=== PATIENT | male | born 1950 | race Caucasian/White ===

== ENCOUNTER 2016-09-29 21:17 | Emergency (ER) | payer MEDICARE, OTHER ==
[~2016-09-29] VITALS: Ht 177.8 cm; Wt 112.7 kg
[2016-09-29 21:19] VITALS: BP 200/98
[2016-09-29 22:25] LABS: HEMOGLOBIN 10.5 g/dL (13.7-18.0)
[2016-09-29] MEDS ORDERED: OXYcodone/APAP 5/325MG TABLET PO ONE (22:30)
[2016-09-29] MEDS ORDERED: PHENAZOPYRIDINE 200 MG TABLET PO ONE (22:30)
[2016-09-29 22:33] LABS: ASPARTATE AMINO TRANSFERASE 28 U/L (15-37); BLOOD UREA NITROGEN 9 mg/dL (7-18)
[2016-09-29 22:45] LABS: DIFF TOTAL CELLS COUNTED 100 CELL DIFF
[2016-09-29] MEDS ORDERED: PHENAZOPYRIDINE 200 MG TABLET ONE (22:46)
[2016-09-29] MEDS ORDERED: OXYcodone/APAP 5/325MG TABLET ONE (22:46)
[2016-09-29 22:50] LABS: VERIFY COUNTS? YES
[2016-09-29 22:51] LABS: ANISOCYTOSIS 1+; MICROCYTOSIS 1+; POLYCHROMASIA 1+
== END 2016-09-30 00:04 | disposition home or self-care (01) ==
LOC: ED 22:47
DX: N30.91 Cystitis, unspecified with hematuria (principal); I10 Essential (primary) hypertension
CPT/HCPCS: 36415; 74176; 80053; 81001; 85025; 85610; 85730; 99285

== ENCOUNTER → 2016-10-28 | Outpatient (CLI) | payer MEDICARE, OTHER ==
[~2016-10-28] MED LIST: OMNIPAQUE 350 MG/ML, 150 ML BOTTLE ONE
== END | disposition home or self-care (01) ==
LOC: RAD 12:54
PROVIDERS: ATTEND Urology
DX: K76.9 Liver disease, unspecified (principal); K57.90 Diverticulosis of intestine, part unspecified, without perforation or abscess without bleeding
CPT/HCPCS: 74178; Q9967

== ENCOUNTER → 2016-11-13 | Outpatient (CLI) | payer MEDICARE, OTHER ==
[~2016-11-13] MED LIST changes: +GADOBUTROL 10 MMOL/10 ML VIAL ONE; +OMNIPAQUE 350 MG/ML, 100ML BOTTLE ONE; -OMNIPAQUE 350 MG/ML, 150 ML BOTTLE ONE
== END | disposition home or self-care (01) ==
LOC: RAD 14:02
PROVIDERS: ATTEND Urology
DX: C67.9 Malignant neoplasm of bladder, unspecified (principal); J43.2 Centrilobular emphysema; R91.1 Solitary pulmonary nodule; J98.11 Atelectasis; R16.2 Hepatomegaly with splenomegaly, not elsewhere classified; K76.0 Fatty (change of) liver, not elsewhere classified; Z98.890 Other specified postprocedural states
CPT/HCPCS: 71260; 72197; 74183; A9585; Q9967

== ENCOUNTER → 2016-11-14 | Outpatient (CLI) | payer MEDICARE, OTHER | END | disposition home or self-care (01) | LOC: RAD 07:20 | PROVIDERS: ATTEND Urology | DX: C67.9 Malignant neoplasm of bladder, unspecified (principal); M19.031 Primary osteoarthritis, right wrist; M19.012 Primary osteoarthritis, left shoulder; M19.011 Primary osteoarthritis, right shoulder; M17.0 Bilateral primary osteoarthritis of knee; M47.9 Spondylosis, unspecified; M19.072 Primary osteoarthritis, left ankle and foot; M19.071 Primary osteoarthritis, right ankle and foot | CPT/HCPCS: 78306; A9503 ==

== ENCOUNTER → 2017-01-01 | Outpatient (CLI) | payer MEDICARE, OTHER ==
[~2017-01-01] MED LIST changes: -GADOBUTROL 10 MMOL/10 ML VIAL ONE
== END | disposition home or self-care (01) ==
LOC: CFH 13:16
PROVIDERS: ATTEND Internal Medicine
DX: C67.8 Malignant neoplasm of overlapping sites of bladder (principal); R59.0 Localized enlarged lymph nodes; R91.1 Solitary pulmonary nodule; K76.89 Other specified diseases of liver
CPT/HCPCS: 71260; 74177; Q9967

== ENCOUNTER → 2017-02-13 | Outpatient (CLI) | payer MEDICARE, OTHER | END | disposition home or self-care (01) | LOC: CFH 13:22 | PROVIDERS: ATTEND Internal Medicine | DX: K57.30 Diverticulosis of large intestine without perforation or abscess without bleeding (principal); K76.89 Other specified diseases of liver; N32.89 Other specified disorders of bladder; M51.36 Other intervertebral disc degeneration, lumbar region; R91.1 Solitary pulmonary nodule; R59.0 Localized enlarged lymph nodes; C67.9 Malignant neoplasm of bladder, unspecified | CPT/HCPCS: 71260; 74177; Q9967 ==

== ENCOUNTER → 2017-03-05 | Outpatient (CLI) | payer MEDICARE, OTHER | END | disposition home or self-care (01) | LOC: PETCFH 08:10 | PROVIDERS: ATTEND Internal Medicine | DX: C67.8 Malignant neoplasm of overlapping sites of bladder (principal) | CPT/HCPCS: 78815; A9552 ==

== ENCOUNTER → 2017-03-31 | Outpatient (CLI) | payer MEDICARE, OTHER ==
[~2017-03-31] MED LIST changes: +INSU100V SC; +LOSA1TAB16 PO; +OMEP-110 PO; -OMNIPAQUE 350 MG/ML, 100ML BOTTLE ONE; +SERT100T5 PO
[2017-03-31 14:22] LABS: HEMATOCRIT 33.2 % (39.2-51.8); HEMOGLOBIN 10.8 g/dL (13.7-18.0); WHITE BLOOD COUNT 4.9 x10^3/uL (3.4-10)
[2017-03-31 14:35] LABS: BLOOD UREA NITROGEN 17 mg/dL (7-18)
[2017-03-31 14:38] LABS: ASPARTATE AMINO TRANSFERASE 11 U/L (15-37)
== END | disposition home or self-care (01) ==
LOC: STAR 13:12
PROVIDERS: ATTEND Urology
DX: Z01.818 Encounter for other preprocedural examination (principal); C67.9 Malignant neoplasm of bladder, unspecified
CPT/HCPCS: 36415; 80053; 81001; 85025; 87086; 93005

== ENCOUNTER → 2017-04-02 | Outpatient (CLI) | payer MEDICARE, OTHER | END | disposition home or self-care (01) | LOC: WOUND 07:48 | PROVIDERS: ATTEND Internal Medicine | DX: D49.4 Neoplasm of unspecified behavior of bladder (principal); E11.9 Type 2 diabetes mellitus without complications; M19.90 Unspecified osteoarthritis, unspecified site; I10 Essential (primary) hypertension; R31.9 Hematuria, unspecified | CPT/HCPCS: G0463; WOU0463 ==

== ENCOUNTER 2017-04-04 05:32 | Inpatient (IN) | payer MEDICARE, OTHER ==
[~2017-04-04] VITALS: Ht 177.8 cm; Wt 111.4 kg
[2017-04-04] MEDS ORDERED: LACTATED RINGERS 1,000 ML IV SCH (06:15)
[2017-04-04 06:39] VITALS: BP 159/87
[2017-04-04] MEDS ORDERED: EPINEPHRINE 1 MG/ML, 1ML ONE (07:00)
[2017-04-04] MEDS ORDERED: BUPIVACAINE/PF 0.25% ONE (07:00)
[2017-04-04] MEDS ORDERED: THROMBIN 5,000 UNIT VIAL TP ONE (07:00)
[2017-04-04] MEDS ORDERED: ONDANSETRON 2MG/ML, 2ML ONE (07:22)
[2017-04-04] MEDS ORDERED: CEFAZOLIN 1,000 MG ONE (07:22)
[2017-04-04] MEDS ORDERED: GLYCOPYRROLATE 0.2MG/1ML, 5ML ONE (07:22)
[2017-04-04] MEDS ORDERED: ROCURONIUM 10 MG/ML ONE (07:22)
[2017-04-04] MEDS ORDERED: SUCCINYLCHOLINE 20 MG/ML, 10ML ONE (07:22)
[2017-04-04] MEDS ORDERED: PROPOFOL 10 MG/ML, 20ML ONE (07:22)
[2017-04-04] MEDS ORDERED: DEXAMETHASONE 4 MG/ML, 1ML ONE (07:22)
[2017-04-04] MEDS ORDERED: NEOSTIGMINE 1 MG/ML, 10ML ONE (07:22)
[2017-04-04] MEDS ORDERED: FENTANYL PF 500 MCG/10ML ONE ×2 (07:23→09:09)
[2017-04-04] MEDS ORDERED: KETAMINE 10 MG/ML, 20ML ONE (07:23)
[2017-04-04] MEDS ORDERED: MIDAZOLAM 1 MG/ML, 2ML ONE (07:23)
[2017-04-04] MEDS ORDERED: PHENYLEPHRINE 10 MG/ML ONE (07:58)
[2017-04-04] MEDS ORDERED: CEFOTETAN PMX 2GM/50ML 50 ML ONE (08:30)
[2017-04-04] MEDS ORDERED: LIDOCAINE-MPF 2% ,5ML ONE ×2 (09:28)
[2017-04-04] MEDS ORDERED: FENTANYL PF 100 MCG/2ML IV PRN (09:30)
[2017-04-04] MEDS ORDERED: OXYcodone 5 MG/5 ML ORAL.SOL UDC PO PRN (09:30)
[2017-04-04] MEDS ORDERED: HYDROmorphone 1 MG/ML, 1ML IV PRN (09:30)
[2017-04-04] MEDS ORDERED: hydrALAzine 20 MG/ML, 1ML IV PRN (09:30)
[2017-04-04] MEDS ORDERED: PROMETHAZINE 25 MG/ML, 1ML IV PRN (09:30)
[2017-04-04] MEDS ORDERED: LABETALOL 5MG/ML, 20ML IV PRN (09:30)
[2017-04-04] MEDS ORDERED: ALBUTEROL/IPRATROPIUM 2.5MG/0.5MG, 3 ML NPPB PRN (09:30)
[2017-04-04] MEDS ORDERED: ONDANSETRON 2MG/ML, 2ML IVPush PRN (09:30)
[2017-04-04] MEDS ORDERED: MEPERIDINE/PF 25MG/0.5ML IVPush PRN (09:30)
[2017-04-04] MEDS ORDERED: MIDAZOLAM 1 MG/ML, 2ML IV PRN (09:30)
[2017-04-04] MEDS ORDERED: EPHEDRINE 50 MG/ML, 1ML IVPush PRN (09:30)
[2017-04-04] MEDS ORDERED: DIAZEPAM 5 MG/ML, 2ML IVPush PRN (09:30)
[2017-04-04] MEDS ORDERED: ACETAMINOPHEN 325 MG TABLET PO PRN (09:30)
[2017-04-04] MEDS ORDERED: LABETALOL 5MG/ML, 20ML ONE ×2 (10:00→14:21)
[2017-04-04] MEDS ORDERED: HEPARIN 5,000 UNITS/ML, 1ML ONE (10:00)
[2017-04-04] MEDS ORDERED: CEFOTETAN PMX 1GM/50ML 50 ML ONE ×2 (15:34→15:47)
[2017-04-04] MEDS ORDERED: ACETAMINOPHEN 650 MG/20.3 ML UDC ONE (16:48)
[2017-04-04] MEDS ORDERED: OXYcodone 5 MG/5 ML ORAL.SOL UDC ONE (16:48)
[2017-04-04] MEDS ORDERED: HYDROmorphone 1 MG/ML, 1ML ONE ×2 (16:48→18:37)
[2017-04-04] MEDS ORDERED: FENTANYL PF 100 MCG/2ML ONE (16:48)
[2017-04-04] MEDS ORDERED: INSULIN SINGLE DOSE, ER SQ-INSULIN ONE (16:53)
[2017-04-04] MEDS ORDERED: INSULIN REGULAR 100 UNITS/ML, 3ML VIAL SQ-INSULIN SCH (17:00)
[2017-04-04] MEDS: HYDROmorphone 1 MG/ML, 1ML IV PRN (18:40)
[2017-04-04 18:56] VITALS: BP 130/75
[2017-04-04] MEDS ORDERED: CEFOXITIN PMX 1GM/50ML 50 ML IVPB SCH (19:00)
[2017-04-04] MEDS ORDERED: Postop antibiotic to be continued for longer than 24 hours XX PRN (19:00)
[2017-04-04] MEDS ORDERED: CEFOXITIN 1,000 MG in SODIUM CHLORIDE 0.9% 50 ML IVPB SCH (19:00)
[2017-04-04] MEDS ORDERED: ONDANSETRON 2MG/ML, 2ML IV PRN (19:00)
[2017-04-04] MEDS ORDERED: PROMETHAZINE 25 MG/ML, 1ML IM PRN (19:00)
[2017-04-04] MEDS: LACTATED RINGERS 1,000 ML IV SCH (22:07)
[2017-04-04] MEDS: ACETAMINOPHEN 500 MG TABLET PO SCH (22:08)
[2017-04-04] MEDS: CEFOXITIN 1,000 MG in SODIUM CHLORIDE 0.9% 50 ML IVPB SCH (22:08)
[2017-04-04] MEDS: GABAPENTIN 300 MG CAPSULE PO SCH (22:08)
[2017-04-04] MEDS: INSULIN REGULAR, HUMAN 100 UNITS/ML, 3ML MEDIUM DOSE SS SQ-INSULIN SCH (22:39)
[2017-04-05] VITALS: BP 129/83
[2017-04-05] MEDS: ACETAMINOPHEN 500 MG TABLET PO SCH ×4 (01:23→18:44)
[2017-04-05] MEDS: HYDROmorphone 1 MG/ML, 1ML IV PRN ×5 (01:26→14:34)
[2017-04-05] MEDS ORDERED: HYDROmorphone 1 MG/ML, 1ML ONE (04:51)
[2017-04-05] MEDS: CEFOXITIN 1,000 MG in SODIUM CHLORIDE 0.9% 50 ML IVPB SCH ×2 (05:17→18:46)
[2017-04-05 06:06] LABS: BLOOD UREA NITROGEN 19 mg/dL (7-18)
[2017-04-05 06:12] LABS: HEMATOCRIT 29.6 % (39.2-51.8); HEMOGLOBIN 9.5 g/dL (13.7-18.0); WHITE BLOOD COUNT 8.5 x10^3/uL (3.4-10)
[2017-04-05 06:43] VITALS: BP 132/74
[2017-04-05] MEDS: LACTATED RINGERS 1,000 ML IV SCH (07:00)
[2017-04-05] MEDS: INSULIN REGULAR, HUMAN 100 UNITS/ML, 3ML MEDIUM DOSE SS SQ-INSULIN SCH ×4 (07:33→20:28)
[2017-04-05] MEDS ORDERED: POTASSIUM CHLORIDE 20 MEQ in SODIUM CHLORIDE 0.45% 1,000 ML IV SCH (09:01)
[2017-04-05] MEDS: ENOXAPARIN 40 MG/0.4 ML SQ SCH (09:31)
[2017-04-05] MEDS: PANTOPROZOLE 40MG TABLET PO SCH (09:32)
[2017-04-05] MEDS: SERTRALINE 50MG TABLET PO SCH (09:32)
[2017-04-05] MEDS: GABAPENTIN 300 MG CAPSULE PO SCH ×3 (09:32→20:28)
[2017-04-05] MEDS: OXYcodone IR 5MG TABLET PO PRN (10:07)
[2017-04-05 12:41] VITALS: BP 142/83
[2017-04-05 19:08] VITALS: BP_SYST 117; BP_SYST 98; BP_DIAS 57; BP_DIAS 73
[2017-04-05] MEDS ORDERED: PROMETHAZINE 25 MG/ML, 1ML IM PRN (20:30)
[2017-04-05] MEDS ORDERED: ONDANSETRON 2MG/ML, 2ML IV PRN (20:30)
[2017-04-05] MEDS: POTASSIUM CHLORIDE 20 MEQ in SODIUM CHLORIDE 0.45% 1,000 ML IV SCH (21:19)
[2017-04-06] MEDS: ACETAMINOPHEN 500 MG TABLET PO SCH ×4 (01:12→20:48)
[2017-04-06 02:00] VITALS: BP 126/78
[2017-04-06 05:23] LABS: HEMATOCRIT 27.7 % (39.2-51.8)
[2017-04-06 05:30] LABS: BLOOD UREA NITROGEN 13 mg/dL (7-18)
[2017-04-06] MEDS: INSULIN REGULAR, HUMAN 100 UNITS/ML, 3ML MEDIUM DOSE SS SQ-INSULIN SCH (07:00)
[2017-04-06] MEDS: CEFOXITIN 1,000 MG in SODIUM CHLORIDE 0.9% 50 ML IVPB SCH (07:17)
[2017-04-06 07:50] VITALS: BP 136/82
[2017-04-06] MEDS: PANTOPROZOLE 40MG TABLET PO SCH (08:12)
[2017-04-06] MEDS: GABAPENTIN 300 MG CAPSULE PO SCH ×3 (08:12→20:48)
[2017-04-06] MEDS: SERTRALINE 50MG TABLET PO SCH (08:13)
[2017-04-06] MEDS: POTASSIUM CHLORIDE 20 MEQ in SODIUM CHLORIDE 0.45% 1,000 ML IV SCH ×2 (08:13→23:50)
[2017-04-06] MEDS: ENOXAPARIN 40 MG/0.4 ML SQ SCH (08:13)
[2017-04-06] MEDS ORDERED: INSULIN REGULAR 100 UNITS/ML, 3ML VIAL SQ-INSULIN SCH (12:00)
[2017-04-06 15:06] LABS: HEMOGLOBIN 8.7 g/dL (13.7-18.0); WHITE BLOOD COUNT 7.9 x10^3/uL (3.4-10)
[2017-04-06 15:16] LABS: BLOOD UREA NITROGEN 12 mg/dL (7-18)
[2017-04-06] MEDS: CEPHALEXIN 500 MG CAPSULE PO SCH ×2 (15:19→20:49)
[2017-04-06] MEDS: INSULIN REGULAR 100 UNITS/ML, 3ML VIAL SQ-INSULIN SCH ×2 (15:22→21:06)
[2017-04-06 15:34] VITALS: BP 132/77
[2017-04-06 19:47] VITALS: BP 138/78
[2017-04-07 02:15] VITALS: BP 147/90
[2017-04-07 06:21] LABS: HEMATOCRIT 27.8 % (39.2-51.8); HEMOGLOBIN 8.9 g/dL (13.7-18.0); WHITE BLOOD COUNT 8.3 x10^3/uL (3.4-10)
[2017-04-07 06:42] LABS: BLOOD UREA NITROGEN 12 mg/dL (7-18)
[2017-04-07] MEDS: INSULIN REGULAR 100 UNITS/ML, 3ML VIAL SQ-INSULIN SCH ×4 (07:00→21:03)
[2017-04-07 08:05] VITALS: BP 138/80
[2017-04-07] MEDS: PANTOPROZOLE 40MG TABLET PO SCH (08:10)
[2017-04-07] MEDS: KETOROLAC 30 MG/1 ML IV PRN ×2 (11:21→16:53)
[2017-04-07] MEDS: CEPHALEXIN 500 MG CAPSULE PO SCH ×3 (11:21→21:04)
[2017-04-07] MEDS: GABAPENTIN 300 MG CAPSULE PO SCH ×2 (11:21→16:52)
[2017-04-07] MEDS: ENOXAPARIN 40 MG/0.4 ML SQ SCH (11:21)
[2017-04-07] MEDS: ACETAMINOPHEN 500 MG TABLET PO SCH ×3 (11:22→21:04)
[2017-04-07] MEDS: METOCLOPRAMIDE 5 MG/ML, 2ML IV SCH ×3 (11:23→21:03)
[2017-04-07 19:08] VITALS: BP 128/81
[2017-04-08 02:50] VITALS: BP 147/83
[2017-04-08] MEDS: ACETAMINOPHEN 500 MG TABLET PO SCH ×4 (03:41→21:42)
[2017-04-08] MEDS: METOCLOPRAMIDE 5 MG/ML, 2ML IV SCH ×4 (03:41→21:42)
[2017-04-08 05:43] LABS: HEMATOCRIT 26.1 % (39.2-51.8); HEMOGLOBIN 8.2 g/dL (13.7-18.0); WHITE BLOOD COUNT 6.4 x10^3/uL (3.4-10)
[2017-04-08 05:47] LABS: BLOOD UREA NITROGEN 19 mg/dL (7-18)
[2017-04-08] MEDS: INSULIN REGULAR 100 UNITS/ML, 3ML VIAL SQ-INSULIN SCH ×4 (07:00→21:00)
[2017-04-08 07:38] VITALS: BP 128/73
[2017-04-08] MEDS: CEPHALEXIN 500 MG CAPSULE PO SCH ×3 (09:38→21:42)
[2017-04-08] MEDS: ENOXAPARIN 40 MG/0.4 ML SQ SCH (09:38)
[2017-04-08] MEDS: PANTOPROZOLE 40MG TABLET PO SCH (09:38)
[2017-04-08] MEDS: KETOROLAC 30 MG/1 ML IV PRN ×2 (14:48→21:42)
[2017-04-08] MEDS ORDERED: NICOTINE 7 MG/24 HR PATCH.TD24 TD PRN (17:00)
[2017-04-08] MEDS: OXYcodone IR 5MG TABLET PO PRN (17:04)
[2017-04-08] MEDS: POTASSIUM CHLORIDE 20 MEQ in SODIUM CHLORIDE 0.45% 1,000 ML IV SCH (18:38)
[2017-04-08 18:52] VITALS: BP 152/83
[2017-04-09 02:16] VITALS: BP 136/80
[2017-04-09] MEDS: OXYcodone IR 5MG TABLET PO PRN (02:28)
[2017-04-09] MEDS: ACETAMINOPHEN 500 MG TABLET PO SCH ×4 (04:28→21:03)
[2017-04-09] MEDS: METOCLOPRAMIDE 5 MG/ML, 2ML IV SCH ×4 (04:29→21:03)
[2017-04-09 05:05] LABS: HEMATOCRIT 25.5 % (39.2-51.8); HEMOGLOBIN 8.2 g/dL (13.7-18.0); WHITE BLOOD COUNT 5.3 x10^3/uL (3.4-10)
[2017-04-09 05:19] LABS: BLOOD UREA NITROGEN 16 mg/dL (7-18)
[2017-04-09] MEDS: INSULIN REGULAR 100 UNITS/ML, 3ML VIAL SQ-INSULIN SCH ×4 (06:27→21:00)
[2017-04-09] MEDS: PANTOPROZOLE 40MG TABLET PO SCH (07:58)
[2017-04-09] MEDS: CEPHALEXIN 500 MG CAPSULE PO SCH ×3 (07:58→21:03)
[2017-04-09] MEDS: ENOXAPARIN 40 MG/0.4 ML SQ SCH (07:58)
[2017-04-09 09:45] VITALS: BP 150/80
[2017-04-09] MEDS: POTASSIUM CHLORIDE 20 MEQ in SODIUM CHLORIDE 0.45% 1,000 ML IV SCH (10:13)
[2017-04-09 15:25] VITALS: BP 147/79
[2017-04-09 19:23] VITALS: BP 155/86
[2017-04-10] MEDS: POTASSIUM CHLORIDE 20 MEQ in SODIUM CHLORIDE 0.45% 1,000 ML IV SCH (00:37)
[2017-04-10 01:01] VITALS: BP 146/80
[2017-04-10] MEDS: OXYcodone IR 5MG TABLET PO PRN (02:24)
[2017-04-10] MEDS: ACETAMINOPHEN 500 MG TABLET PO SCH ×2 (03:49→10:40)
[2017-04-10] MEDS: METOCLOPRAMIDE 5 MG/ML, 2ML IV SCH ×2 (03:53→10:00)
[2017-04-10 06:43] VITALS: BP 137/75
[2017-04-10] MEDS: INSULIN REGULAR 100 UNITS/ML, 3ML VIAL SQ-INSULIN SCH ×2 (07:42→11:00)
[2017-04-10] MEDS: PANTOPROZOLE 40MG TABLET PO SCH (08:57)
[2017-04-10] MEDS: CEPHALEXIN 500 MG CAPSULE PO SCH (10:40)
[2017-04-10] MEDS: ENOXAPARIN 40 MG/0.4 ML SQ SCH (10:41)
[2017-04-10 13:07] VITALS: BP 142/75
[2017-04-10] MEDS ORDERED: OXYC5CAP2 PO (15:18)
[2017-04-10] MEDS ORDERED: ENOX40SY4 SQ (15:19)
== END 2017-04-10 15:40 | disposition home or self-care (01) | DRG 654 ==
LOC: ORIP 05:32 → 4NOR 18:20
PROVIDERS: ADMIT Urology; ATTEND Urology
PROC: 07TC4ZZ Resection of Pelvis Lymphatic, Percutaneous Endoscopic Approach (ICD-10-PCS; 2017-04-04)
PROC: 0VT04ZZ Resection of Prostate, Percutaneous Endoscopic Approach (ICD-10-PCS; 2017-04-04)
PROC: 0T1847C Bypass Bilateral Ureters to Ileocutaneous with Autologous Tissue Substitute, Percutaneous Endoscopic Approach (ICD-10-PCS; 2017-04-04)
PROC: 8E0W4CZ Robotic Assisted Procedure of Trunk Region, Percutaneous Endoscopic Approach (ICD-10-PCS; 2017-04-04)
PROC: 0TTB4ZZ Resection of Bladder, Percutaneous Endoscopic Approach (ICD-10-PCS; principal; 2017-04-04 07:30)
DX: C67.9 Malignant neoplasm of bladder, unspecified (principal); K56.7 Ileus, unspecified; E11.9 Type 2 diabetes mellitus without complications
CPT/HCPCS: 36415; 74000; 74020; 80048; 82040; 82570; 82962; 83735; 85025; 86850; 86900; 88305; 88307; 88331; C1729; J0171; J0690; J1100; J1170; J1644; J1650; J1815; J1885; J2250; J2270; J2405; J2704; J2710; J3010; J3480; J3490; C1760; C1769; C2617; J0330; J0694; J2370; J2765; J7120; S0074

== ENCOUNTER 2017-05-12 09:43 | Inpatient (IN) | payer MEDICARE, OTHER ==
[~2017-05-12] VITALS: Ht 177.8 cm; Wt 98.0 kg
[~2017-05-12 09:43] MED LIST changes: +ENOX40SY4 SQ; -LOSA1TAB16 PO; +LOSA1TAB19 PO; +OXYC5CAP2 PO
[2017-05-12] MEDS ORDERED: SODIUM CHLORIDE 0.9% 1,000 ML IV ONE (10:17)
[2017-05-12] MEDS ORDERED: SODIUM CHLORIDE FLUSH 10ML SYR IVF ONE (10:30)
[2017-05-12] MEDS ORDERED: MECLIZINE CHEWABLE 25 MG TAB PO ONE (10:30)
[2017-05-12] MEDS ORDERED: ONDANSETRON 2MG/ML, 2ML IVPush ONE (10:30)
[2017-05-12] MEDS ORDERED: SODIUM CHLORIDE 0.9% 1,000ML IVBOLUS ONE ×2 (10:30→14:00)
[2017-05-12 10:49] LABS: ASPARTATE AMINO TRANSFERASE 12 U/L (15-37); BLOOD UREA NITROGEN 14 mg/dL (7-18)
[2017-05-12 11:00] LABS: HEMATOCRIT 31.2 % (39.2-51.8); HEMOGLOBIN 9.9 g/dL (13.7-18.0); WHITE BLOOD COUNT 9.6 x10^3/uL (3.4-10)
[2017-05-12 11:01] LABS: ANISOCYTOSIS 1+; MICROCYTOSIS 1+; POLYCHROMASIA 1+
[2017-05-12 11:02] LABS: LARGE PLATELETS 1+
[2017-05-12] MEDS ORDERED: ONDANSETRON 2MG/ML, 2ML ONE (11:13)
[2017-05-12] MEDS ORDERED: MECLIZINE CHEWABLE 25 MG TAB ONE (11:13)
[2017-05-12] MEDS ORDERED: CEFTRIAXONE PMX 1GM/50ML 50 ML ONE (12:53)
[2017-05-12] MEDS ORDERED: CEFTRIAXONE PMX 1GM/50ML 50 ML IV ONE (13:00)
[2017-05-12] MEDS ORDERED: HYDROcodone/APAP 5/325 TABLET PO ONE (14:00)
[2017-05-12] MEDS ORDERED: HYDROcodone/APAP 5/325 TABLET ONE (14:25)
[2017-05-12] MEDS ORDERED: ONDANSETRON 2MG/ML, 2ML IVPush PRN (16:00)
[2017-05-12] MEDS: INSULIN ASPART 100 UNITS/ML, PEN SQ-INSULIN SCH ×2 (16:00→21:41)
[2017-05-12] MEDS ORDERED: ONDANSETRON ODT 4 MG PO PRN (16:00)
[2017-05-12 19:00] VITALS: BP 128/74
[2017-05-12 19:28] LABS: IS PT STATUS REG ER OR PRE ER? NO
[2017-05-12] MEDS: ENOXAPARIN 40 MG/0.4 ML SQ SCH (21:40)
[2017-05-12] MEDS: NS + 20MEQ KCL 1,000 ML IV SCH (21:40)
[2017-05-12 22:00] VITALS: BP_SYST 126; BP_SYST 130; BP_SYST 136; BP_DIAS 69; BP_DIAS 75; BP_DIAS 78
[2017-05-13 02:00] VITALS: BP 127/74
[2017-05-13 02:10] LABS: IS PT STATUS REG ER OR PRE ER? NO
[2017-05-13 05:15] LABS: HEMATOCRIT 24.1 % (39.2-51.8); HEMOGLOBIN 7.9 g/dL (13.7-18.0); WHITE BLOOD COUNT 6.3 x10^3/uL (3.4-10)
[2017-05-13 06:32] LABS: ASPARTATE AMINO TRANSFERASE 11 U/L (15-37); BLOOD UREA NITROGEN 13 mg/dL (7-18)
[2017-05-13] MEDS: INSULIN ASPART 100 UNITS/ML, PEN SQ-INSULIN SCH ×4 (07:00→20:38)
[2017-05-13 07:08] VITALS: BP 137/75
[2017-05-13] MEDS: SERTRALINE 100MG TABLET PO SCH (09:35)
[2017-05-13] MEDS: OMEPRAZOLE 20 MG CAPSULE.DR PO SCH (09:35)
[2017-05-13] MEDS: NS + 20MEQ KCL 1,000 ML IV SCH ×2 (09:36→21:40)
[2017-05-13] MEDS: NEUTRA PHOS K 250 MG TABLET PO SCH ×3 (10:27→21:18)
[2017-05-13] MEDS ORDERED: MAGNESIUM SULFATE PMX 2GM/50ML 50 ML IV ONE (11:00)
[2017-05-13] MEDS ORDERED: CEFTRIAXONE PMX 1GM/50ML 50 ML IV SCH (13:00)
[2017-05-13 13:56] VITALS: BP 133/75
[2017-05-13] MEDS ORDERED: POLYETHYLENE GLYCOL 17 GM PACKET PO PRN (16:30)
[2017-05-13] MEDS ORDERED: ACETAMINOPHEN 325 MG TABLET PO PRN (16:30)
[2017-05-13 19:28] VITALS: BP 124/73
[2017-05-13] MEDS: DOCUSATE 100 MG CAPSULE PO SCH (21:18)
[2017-05-13] MEDS: ENOXAPARIN 40 MG/0.4 ML SQ SCH (21:19)
[2017-05-14 02:00] VITALS: BP 113/64
[2017-05-14 04:59] LABS: HEMATOCRIT 24.8 % (39.2-51.8); HEMOGLOBIN 7.9 g/dL (13.7-18.0); WHITE BLOOD COUNT 4.8 x10^3/uL (3.4-10)
[2017-05-14 05:03] LABS: BLOOD UREA NITROGEN 11 mg/dL (7-18)
[2017-05-14 05:11] LABS: FERRITIN 49.5 ng/mL (26-388); TOTAL IRON BINDING CAPACITY 291 mcg/dL (250-450)
[2017-05-14 05:44] LABS: DIFF TOTAL CELLS COUNTED 100 CELL DIFF
[2017-05-14 05:46] LABS: ANISOCYTOSIS 1+; MICROCYTOSIS 1+; VERIFY COUNTS? YES
[2017-05-14 05:47] LABS: HYPOCHROMIA 1+; POLYCHROMASIA 1+
[2017-05-14 08:30] VITALS: BP 124/64
[2017-05-14] MEDS: DOCUSATE 100 MG CAPSULE PO SCH (09:00)
[2017-05-14] MEDS: NS + 20MEQ KCL 1,000 ML IV SCH (09:02)
[2017-05-14] MEDS: SERTRALINE 100MG TABLET PO SCH (09:03)
[2017-05-14] MEDS: INSULIN ASPART 100 UNITS/ML, PEN SQ-INSULIN SCH ×2 (09:03→11:00)
[2017-05-14] MEDS: OMEPRAZOLE 20 MG CAPSULE.DR PO SCH (09:03)
[2017-05-14] MEDS ORDERED: ASCORBIC ACID 500 MG TABLET PO SCH (11:00)
[2017-05-14] MEDS ORDERED: LEVO500T47 PO ×2 (11:08→16:47)
[2017-05-14] MEDS ORDERED: DOCU-131 PO (11:08)
[2017-05-14] MEDS ORDERED: FERR-36 PO (11:08)
[2017-05-14] MEDS ORDERED: ASCO500T6 PO (11:08)
[2017-05-14] MEDS ORDERED: FERROUS SULFATE 325 MG TABLET PO SCH (12:00)
== END 2017-05-14 12:41 | disposition home or self-care (01) | DRG 871 ==
LOC: ED 10:55 → EDIP 14:27 → 4WST 18:55 → DCLOUNGE 05-14 12:30
PROVIDERS: ADMIT Hospitalist; ATTEND Hospitalist
DX: A41.9 Sepsis, unspecified organism (principal); N17.0 Acute kidney failure with tubular necrosis; E87.1 Hypo-osmolality and hyponatremia; D69.6 Thrombocytopenia, unspecified; E83.39 Other disorders of phosphorus metabolism; N39.0 Urinary tract infection, site not specified; C67.9 Malignant neoplasm of bladder, unspecified; B95.2 Enterococcus as the cause of diseases classified elsewhere; D50.9 Iron deficiency anemia, unspecified; E11.9 Type 2 diabetes mellitus without complications; E87.6 Hypokalemia; F32.9 Major depressive disorder, single episode, unspecified; E86.0 Dehydration; I11.9 Hypertensive heart disease without heart failure; R55 Syncope and collapse; K21.9 Gastro-esophageal reflux disease without esophagitis; Z79.4 Long term (current) use of insulin; Z80.42 Family history of malignant neoplasm of prostate; Z83.3 Family history of diabetes mellitus; Z85.51 Personal history of malignant neoplasm of bladder; Z87.891 Personal history of nicotine dependence; Z92.21 Personal history of antineoplastic chemotherapy; Z90.49 Acquired absence of other specified parts of digestive tract; Z80.0 Family history of malignant neoplasm of digestive organs
CPT/HCPCS: 36415; 70450; 71010; 80048; 80053; 81001; 82728; 82962; 83540; 83550; 83605; 83735; 84100; 84145; 84484; 85025; 87040; 87077; 87086; 87186; 93005; 93306; 96361; 96365; 96366; 96375; J0696; J1650; J1815; J2405; J3480; J3475; J7030

== ENCOUNTER 2017-10-05 08:34 | Inpatient (IN) | payer MEDICARE, OTHER ==
[~2017-10-05] VITALS: Ht 180.3 cm; Wt 96.1 kg
[~2017-10-05 08:34] MED LIST changes: +ASCO500T6 PO; +DOCU-131 PO; +FERR-51 PO; +LEVO500T47 PO
[2017-10-05 09:36] LABS: MEAN CORPUSCULAR HEMOGLOBIN 31.2 pg (27.5-34.5); MEAN CORPUSCULAR HGB CONC 34.3 g/dL (33.2-36.2); MEAN PLATELET VOLUME 7.1 fL (7.4-10.4); PLATELET COUNT 181 x10^3/uL (130-400); RED BLOOD COUNT 4.87 x10^6/uL (4.38-5.82); RED CELL DISTRIBUTION WIDTH 14.8 % (9.4-14.8)
[2017-10-05 09:49] LABS: ALANINE AMINOTRANSFERASE 18 U/L (12-78); ALBUMIN 3.6 g/dL (3.4-5.0); ANION GAP 10 mmol/L (5-15); CALCIUM 9.3 mg/dL (8.5-10.1); CHLORIDE 88 mmol/L (98-107); CREATININE 1.36 mg/dL (0.7-1.3)
[2017-10-05 09:53] LABS: ALKALINE PHOSPHATASE 74 U/L (45-117); BILIRUBIN,TOTAL 1.8 mg/dL (0.2-1.0); TOTAL PROTEIN 8.7 g/dL (6.4-8.2); TROPONIN I < 0.015 ng/mL (0.000-0.045)
[2017-10-05 10:02] LABS: CULTURE INDICATED? YES; MICROSCOPIC INDICATED
[2017-10-05 10:19] LABS: MD YES
[2017-10-05 10:23] LABS: <PLATELET ESTIMATE> ADEQUATE; <PLT MORPHOLOGY> NORMAL PLT MORPH; <RBC MORPHOLOGY> NORMAL; LYMPH#(MANUAL) 0.25 x10^3/uL (1-3.4); LYMPHS% (MANUAL) 3 % (22-44); MONOS#(MANUAL) 0.92 x10^3/uL (0.3-2.7); MONOS% (MANUAL) 11 % (2-9); SEG#(MANUAL) 7.22 x10^3/uL (1.8-6.8); SEGS% (MANUAL) 86 % (42-75)
[2017-10-05] MEDS ORDERED: CEFTRIAXONE PMX 1GM/50ML 50 ML IV ONE (10:30)
[2017-10-05] MEDS ORDERED: OMNIPAQUE 350 MG/ML, 100ML BOTTLE ONE (10:43)
[2017-10-05] MEDS ORDERED: CEFTRIAXONE PMX 1GM/50ML 50 ML ONE (11:25)
[2017-10-05 13:20] VITALS: BP 172/87
[2017-10-05] MEDS ORDERED: POLYETHYLENE GLYCOL 17 GM PACKET PO PRN (13:30)
[2017-10-05] MEDS ORDERED: ONDANSETRON ODT 4 MG PO PRN (13:30)
[2017-10-05] MEDS ORDERED: DOCUSATE 100 MG CAPSULE PO PRN (13:30)
[2017-10-05] MEDS ORDERED: BISACODYL 10 MG SUPP PR PRN (13:30)
[2017-10-05] MEDS ORDERED: ACETAMINOPHEN 325 MG TABLET PO PRN (13:30)
[2017-10-05] MEDS ORDERED: VANCOMYCIN PER PHARMACY MC PRN (14:00)
[2017-10-05] MEDS ORDERED: PHARMACOKINETIC MONITORING MC PRN (14:00)
[2017-10-05] MEDS ORDERED: PHARMACOKINETIC CONSULTATION MC ONE (14:00)
[2017-10-05] MEDS ORDERED: DEXTROSE 4 GM TAB.CHEW PO PRN (14:00)
[2017-10-05] MEDS ORDERED: GLUCAGON 1 MG IM PRN (14:00)
[2017-10-05] MEDS ORDERED: CEFTRIAXONE PMX 1GM/50ML 50 ML IV SCH (14:00)
[2017-10-05] MEDS ORDERED: VANCOMYCIN 2,000 MG in SODIUM CHLORIDE 0.9% 500 ML IV ONE (14:00)
[2017-10-05] MEDS ORDERED: DEXTROSE 50%, 50ML SYRINGE IVPush PRN (14:00)
[2017-10-05] MEDS: NS + 20MEQ KCL 1,000 ML IV SCH (14:19)
[2017-10-05] MEDS: hydrALAzine 20 MG/ML, 1ML IVPush PRN (14:19)
[2017-10-05 15:30] VITALS: BP 143/76
[2017-10-05] MEDS: INSULIN LISPRO 100 UNITS/ML, PEN SQ-INSULIN SCH ×2 (15:56→20:58)
[2017-10-05 16:14] LABS: CHLORIDE,URINE RANDOM 22 mmol/L; POTASSIUM,URINE RANDOM 33 mmol/L; SODIUM,URINE RANDOM 30 mmol/L
[2017-10-05 19:51] VITALS: BP 149/90
[2017-10-05] MEDS: DIPHENHYDRAMINE 50 MG CAPSULE PO PRN (20:34)
[2017-10-05] MEDS: SODIUM CHLORIDE FLUSH 10ML SYR IVF SCH (20:59)
[2017-10-06] MEDS: NS + 20MEQ KCL 1,000 ML IV SCH (02:00)
[2017-10-06 02:24] VITALS: BP 146/86
[2017-10-06 05:43] LABS: CHLORIDE 95 mmol/L (98-107)
[2017-10-06 05:44] LABS: MEAN CORPUSCULAR HEMOGLOBIN 31.5 pg (27.5-34.5); MEAN CORPUSCULAR HGB CONC 34.4 g/dL (33.2-36.2); MEAN CORPUSCULAR VOLUME 91.6 fL (81-97); MEAN PLATELET VOLUME 7.3 fL (7.4-10.4); PLATELET COUNT 193 x10^3/uL (130-400); RED BLOOD COUNT 4.26 x10^6/uL (4.38-5.82); RED CELL DISTRIBUTION WIDTH 15.1 % (9.4-14.8)
[2017-10-06 05:58] LABS: ALANINE AMINOTRANSFERASE 14 U/L (12-78); ALKALINE PHOSPHATASE 62 U/L (45-117); ANION GAP 8 mmol/L (5-15); BILIRUBIN,TOTAL 1.5 mg/dL (0.2-1.0); CALCIUM 8.8 mg/dL (8.5-10.1); TOTAL PROTEIN 7.7 g/dL (6.4-8.2)
[2017-10-06 06:05] LABS: MD YES
[2017-10-06 06:09] LABS: BAND#(MANUAL) 0.18 x10^3/uL; BANDS%(MANUAL) 3 % (0-7); LYMPH#(MANUAL) 0.71 x10^3/uL (1-3.4); LYMPHS% (MANUAL) 12 % (22-44); MONOS#(MANUAL) 1.18 x10^3/uL (0.3-2.7); MONOS% (MANUAL) 20 % (2-9); REACTIVE LYMPHS # (MANUAL) 0.06 x10^3/uL (0-0); REACTIVE LYMPHS % (MANUAL) 1 % (0-0); SEG#(MANUAL) 3.78 x10^3/uL (1.8-6.8); SEGS% (MANUAL) 64 % (42-75)
[2017-10-06 06:10] LABS: ANISOCYTOSIS 1+
[2017-10-06 06:11] LABS: <PLATELET ESTIMATE> ADEQUATE; <PLT MORPHOLOGY> NORMAL PLT MORPH
[2017-10-06 06:40] VITALS: BP 155/90
[2017-10-06] MEDS: INSULIN LISPRO 100 UNITS/ML, PEN SQ-INSULIN SCH ×4 (07:10→20:04)
[2017-10-06] MEDS ORDERED: SERTRALINE 100MG TABLET PO SCH (09:00)
[2017-10-06] MEDS ORDERED: TEMPLATE NON-FORMULARY MED. (Losartan/Hydrochlorothiazide** (Losartan-Hctz 50-12.5 Mg Tab PO SCH (09:00)
[2017-10-06] MEDS: SODIUM CHLORIDE FLUSH 10ML SYR IVF SCH ×2 (09:16→20:00)
[2017-10-06] MEDS: LOSARTAN 50MG TABLET PO SCH (09:18)
[2017-10-06 12:29] VITALS: BP 155/84
[2017-10-06] MEDS: CEFTRIAXONE PMX 1GM/50ML 50 ML IV SCH (13:56)
[2017-10-06] MEDS: VANCOMYCIN 1,500 MG in SODIUM CHLORIDE 0.9% 250 ML IV SCH (14:43)
[2017-10-06] MEDS: DIPHENHYDRAMINE 50 MG CAPSULE PO PRN (20:00)
[2017-10-06 20:23] VITALS: BP 161/87
[2017-10-07 02:50] VITALS: BP 149/76
[2017-10-07 05:14] LABS: MEAN CORPUSCULAR HEMOGLOBIN 31.5 pg (27.5-34.5); MEAN CORPUSCULAR HGB CONC 34.2 g/dL (33.2-36.2); MEAN CORPUSCULAR VOLUME 92.1 fL (81-97); MEAN PLATELET VOLUME 6.8 fL (7.4-10.4); PLATELET COUNT 204 x10^3/uL (130-400); RED CELL DISTRIBUTION WIDTH 15.2 % (9.4-14.8)
[2017-10-07 05:23] LABS: ALANINE AMINOTRANSFERASE 17 U/L (12-78); ALBUMIN 3.2 g/dL (3.4-5.0); ANION GAP 9 mmol/L (5-15); CALCIUM 8.6 mg/dL (8.5-10.1); CHLORIDE 99 mmol/L (98-107); CREATININE 1.16 mg/dL (0.7-1.3)
[2017-10-07 05:25] LABS: ALKALINE PHOSPHATASE 73 U/L (45-117); BILIRUBIN,TOTAL 0.9 mg/dL (0.2-1.0); TOTAL PROTEIN 7.8 g/dL (6.4-8.2)
[2017-10-07 05:44] LABS: MD YES
[2017-10-07 05:47] LABS: BAND#(MANUAL) 0.13 x10^3/uL; BANDS%(MANUAL) 3 % (0-7); BASOS#(MANUAL) 0.04 x10^3/uL (0-0.1); BASOS% (MANUAL) 1 % (0-1); EOS#(MANUAL) 0.09 x10^3/uL (0.0-0.4); EOS% (MANUAL) 2 % (1-7); LYMPH#(MANUAL) 0.69 x10^3/uL (1-3.4); LYMPHS% (MANUAL) 16 % (22-44); MONOS#(MANUAL) 0.65 x10^3/uL (0.3-2.7); MONOS% (MANUAL) 15 % (2-9); SEG#(MANUAL) 2.71 x10^3/uL (1.8-6.8); SEGS% (MANUAL) 63 % (42-75)
[2017-10-07 05:48] LABS: <PLATELET ESTIMATE> ADEQUATE; <PLT MORPHOLOGY> NORMAL PLT MORPH; ANISOCYTOSIS 1+; POLYCHROMASIA 1+
[2017-10-07] MEDS: INSULIN LISPRO 100 UNITS/ML, PEN SQ-INSULIN SCH ×4 (07:18→21:00)
[2017-10-07 07:51] VITALS: BP 149/83
[2017-10-07] MEDS ORDERED: NALOXONE 1 MG/ML, 2ML ONE (08:56)
[2017-10-07] MEDS ORDERED: FLUMAZENIL 0.1 MG/1 ML, 5ML ONE (08:56)
[2017-10-07] MEDS ORDERED: MIDAZOLAM 1 MG/ML, 5ML ONE (08:56)
[2017-10-07] MEDS ORDERED: FENTANYL PF 100 MCG/2ML ONE ×2 (08:56)
[2017-10-07] MEDS: LOSARTAN 50MG TABLET PO SCH (11:10)
[2017-10-07] MEDS: SODIUM CHLORIDE FLUSH 10ML SYR IVF SCH ×2 (11:10→19:38)
[2017-10-07] MEDS: CEFTRIAXONE PMX 1GM/50ML 50 ML IV SCH (14:08)
[2017-10-07] MEDS: VANCOMYCIN 1,500 MG in SODIUM CHLORIDE 0.9% 250 ML IV SCH (14:51)
[2017-10-07 15:00] VITALS: BP 171/78
[2017-10-07] MEDS: hydrALAzine 20 MG/ML, 1ML IVPush PRN (15:25)
[2017-10-07 16:15] VITALS: BP 147/87
[2017-10-07] MEDS: DIPHENHYDRAMINE 50 MG CAPSULE PO PRN (19:38)
[2017-10-07 20:39] VITALS: BP 172/97
[2017-10-07 22:05] VITALS: BP 148/85
[2017-10-08 02:17] VITALS: BP 166/95
[2017-10-08 05:31] LABS: ALANINE AMINOTRANSFERASE 18 U/L (12-78); ALBUMIN 3.1 g/dL (3.4-5.0); ANION GAP 8 mmol/L (5-15); CHLORIDE 100 mmol/L (98-107); CREATININE 1.19 mg/dL (0.7-1.3)
[2017-10-08 05:33] LABS: ALKALINE PHOSPHATASE 69 U/L (45-117); BILIRUBIN,TOTAL 0.6 mg/dL (0.2-1.0); TOTAL PROTEIN 7.8 g/dL (6.4-8.2)
[2017-10-08 05:35] LABS: MEAN CORPUSCULAR HEMOGLOBIN 31.7 pg (27.5-34.5); MEAN CORPUSCULAR HGB CONC 34.2 g/dL (33.2-36.2); MEAN CORPUSCULAR VOLUME 92.7 fL (81-97); PLATELET COUNT 223 x10^3/uL (130-400); RED BLOOD COUNT 4.31 x10^6/uL (4.38-5.82); RED CELL DISTRIBUTION WIDTH 15.4 % (9.4-14.8)
[2017-10-08 05:56] LABS: MD YES
[2017-10-08 05:59] LABS: BASOS#(MANUAL) 0.06 x10^3/uL (0-0.1); BASOS% (MANUAL) 1 % (0-1); LYMPH#(MANUAL) 0.73 x10^3/uL (1-3.4); LYMPHS% (MANUAL) 13 % (22-44)
[2017-10-08 06:02] LABS: EOS#(MANUAL) 0.11 x10^3/uL (0.0-0.4); EOS% (MANUAL) 2 % (1-7); MONOS#(MANUAL) 1.29 x10^3/uL (0.3-2.7); MONOS% (MANUAL) 23 % (2-9); SEG#(MANUAL) 3.42 x10^3/uL (1.8-6.8); SEGS% (MANUAL) 61 % (42-75)
[2017-10-08 06:03] LABS: <PLATELET ESTIMATE> ADEQUATE; <PLT MORPHOLOGY> NORMAL PLT MORPH; <RBC MORPHOLOGY> NORMAL
[2017-10-08 06:40] VITALS: BP 154/93
[2017-10-08] MEDS: INSULIN LISPRO 100 UNITS/ML, PEN SQ-INSULIN SCH ×2 (07:00→11:00)
[2017-10-08] MEDS ORDERED: CEFD300C37 PO (08:56)
[2017-10-08] MEDS: LOSARTAN 50MG TABLET PO SCH (09:27)
[2017-10-08] MEDS: SODIUM CHLORIDE FLUSH 10ML SYR IVF SCH (09:28)
[2017-10-08 12:40] VITALS: BP 188/100
[2017-10-08 13:40] VITALS: BP 156/88
== END 2017-10-08 13:40 | disposition home or self-care (01) | DRG 673 ==
LOC: ED 10:01 → EDIP 11:52 → 4NOR 13:11
PROVIDERS: ADMIT Hospitalist; ATTEND Hospitalist
PROC: 0T9B70Z Drainage of Bladder with Drainage Device, Via Natural or Artificial Opening (ICD-10-PCS; 2017-10-05)
PROC: 07BD3ZX Excision of Aortic Lymphatic, Percutaneous Approach, Diagnostic (ICD-10-PCS; principal; 2017-10-07)
DX: N30.00 Acute cystitis without hematuria (principal); N17.0 Acute kidney failure with tubular necrosis; E87.1 Hypo-osmolality and hyponatremia; N13.30 Unspecified hydronephrosis; R16.1 Splenomegaly, not elsewhere classified; E11.65 Type 2 diabetes mellitus with hyperglycemia; G44.219 Episodic tension-type headache, not intractable; C67.9 Malignant neoplasm of bladder, unspecified; I11.9 Hypertensive heart disease without heart failure; F32.9 Major depressive disorder, single episode, unspecified; K21.9 Gastro-esophageal reflux disease without esophagitis; N13.5 Crossing vessel and stricture of ureter without hydronephrosis; Z79.4 Long term (current) use of insulin; Z80.42 Family history of malignant neoplasm of prostate; Z83.3 Family history of diabetes mellitus; Z85.51 Personal history of malignant neoplasm of bladder; Z87.891 Personal history of nicotine dependence; Z92.21 Personal history of antineoplastic chemotherapy; Z93.6 Other artificial openings of urinary tract status; Z90.49 Acquired absence of other specified parts of digestive tract
CPT/HCPCS: 36415; 49180; 70450; 71045; 71260; 74177; 74425; 76770; 77012; 80053; 81001; 82436; 82570; 82962; 83690; 83935; 84133; 84295; 84300; 84484; 85025; 87077; 87086; 87186; 88184; 88185; 88305; 93005; 96365; 99156; 99157; J0696; J2250; J3010; J3370; J3480; Q9967; J0360; J1815; J2310; J7040; J7050

== ENCOUNTER → 2017-12-31 | Outpatient (CLI) | payer MEDICARE, OTHER ==
[~2017-12-31] MED LIST changes: +CEFD300C37 PO; +FUROSEMIDE 20 MG/2 ML ONE
== END | disposition home or self-care (01) ==
LOC: RAD 09:56
PROVIDERS: ATTEND Urology
DX: N28.9 Disorder of kidney and ureter, unspecified (principal); C67.9 Malignant neoplasm of bladder, unspecified; N13.9 Obstructive and reflux uropathy, unspecified
CPT/HCPCS: 78708; A9562; J1940

== ENCOUNTER → 2018-01-20 | Outpatient (CLI) | payer MEDICARE, OTHER ==
[~2018-01-20] MED LIST changes: +ENBREL SQ-VACC; -FUROSEMIDE 20 MG/2 ML ONE; +PREN1CAP SQ-VACC; +SERT100T PO
== END | disposition home or self-care (01) ==
LOC: RAD 17:17
PROVIDERS: ATTEND Urology
DX: Z02.9 Encounter for administrative examinations, unspecified (principal)

== ENCOUNTER → 2018-01-23 | Outpatient (CLI) | payer MEDICARE, OTHER | END | disposition home or self-care (01) | LOC: CFH 08:41 | PROVIDERS: ATTEND Urology | DX: N13.30 Unspecified hydronephrosis (principal); K76.89 Other specified diseases of liver; R59.0 Localized enlarged lymph nodes; C67.9 Malignant neoplasm of bladder, unspecified | CPT/HCPCS: 74176 ==

== ENCOUNTER 2018-01-26 09:02 | Day surgery (SDC) | payer MEDICARE, OTHER ==
[~2018-01-26] VITALS: Ht 180.3 cm; Wt 97.6 kg
[~2018-01-26 09:02] MED LIST changes: -ENBREL SQ-VACC; -PREN1CAP SQ-VACC; -SERT100T PO
[2018-01-26 09:56] VITALS: BP 190/100
[2018-01-26] MEDS ORDERED: SODIUM CHLORIDE 0.9% 1,000 ML IV SCH (09:59)
[2018-01-26] MEDS ORDERED: PLEASE ENTER HEIGHT AND WEIGHT MC SCH (10:00)
[2018-01-26] MEDS ORDERED: VANCOMYCIN PMX 1GM/200ML 200 ML IVPB ONE (10:00)
[2018-01-26] MEDS ORDERED: PREN1CAP SQ-VACC (10:08)
[2018-01-26] MEDS ORDERED: SERT100T PO (10:10)
[2018-01-26] MEDS ORDERED: ENBREL SQ-VACC (10:10)
[2018-01-26] MEDS ORDERED: VISIPAQUE 270 MG/ML, 50ML BOTTLE ONE (12:00)
[2018-01-26] MEDS ORDERED: FENTANYL PF 100 MCG/2ML ONE ×2 (12:11)
[2018-01-26] MEDS ORDERED: MIDAZOLAM 1 MG/ML, 5ML ONE (12:12)
[2018-01-26] MEDS ORDERED: NALOXONE 1 MG/ML, 2ML ONE (12:12)
[2018-01-26] MEDS ORDERED: FLUMAZENIL 0.1 MG/1 ML, 5ML ONE (12:12)
[2018-01-26] MEDS ORDERED: LIDOCAINE-MPF 1%, 2ML ONE ×2 (12:20→12:21)
== END 2018-01-26 14:25 | disposition home or self-care (01) ==
LOC: OUT 09:02
PROVIDERS: ATTEND Urology
DX: N13.30 Unspecified hydronephrosis (principal); N13.9 Obstructive and reflux uropathy, unspecified; E11.9 Type 2 diabetes mellitus without complications; I10 Essential (primary) hypertension; F15.90 Other stimulant use, unspecified, uncomplicated; Z72.89 Other problems related to lifestyle; Z88.0 Allergy status to penicillin; Z87.39 Personal history of other diseases of the musculoskeletal system and connective tissue; Z98.890 Other specified postprocedural states; Z87.891 Personal history of nicotine dependence; Z72.0 Tobacco use; Z85.51 Personal history of malignant neoplasm of bladder; Z79.899 Other long term (current) drug therapy; Z87.440 Personal history of urinary (tract) infections
CPT/HCPCS: 50432; 76942; 99156; 99157; C1729; C1769; C1894; J2250; J3010; J3370; J3490; J7030; Q9966; J2310

== ENCOUNTER → 2018-08-26 | Outpatient (CLI) | payer MEDICARE, OTHER ==
[~2018-08-26] MED LIST changes: +ENBREL SQ-VACC; +PREN1CAP SQ-VACC; +SERT100T PO; +SERT100T32 PO; -SERT100T5 PO
== END | disposition home or self-care (01) ==
LOC: CFH 09:59
PROVIDERS: ATTEND Urology
DX: C67.9 Malignant neoplasm of bladder, unspecified (principal); K57.30 Diverticulosis of large intestine without perforation or abscess without bleeding; I70.0 Atherosclerosis of aorta; Z93.6 Other artificial openings of urinary tract status
CPT/HCPCS: 74176

== ENCOUNTER 2019-05-13 19:23 | Inpatient (IN) | payer MEDICARE, OTHER ==
[~2019-05-13] VITALS: Ht 177.8 cm; Wt 101.3 kg
[2019-05-13] MEDS ORDERED: LORazepam 2 MG/ML, 1ML IVPush ONE (20:00)
[2019-05-13] MEDS ORDERED: SODIUM CHLORIDE FLUSH 10ML SYR IVF ONE (20:00)
[2019-05-13] MEDS ORDERED: MECLIZINE CHEWABLE 25 MG TAB PO ONE (20:00)
[2019-05-13] MEDS ORDERED: ASPIRIN 81 MG TABLET CHEW PO ONE (20:00)
[2019-05-13] MEDS ORDERED: MECLIZINE CHEWABLE 25 MG TAB ONE (20:01)
[2019-05-13] MEDS ORDERED: ASPIRIN 81 MG TABLET CHEW ONE (20:01)
[2019-05-13] MEDS ORDERED: LORazepam 2 MG/ML, 1ML ONE (20:02)
--- NOTE | 2019-05-13 20:08 | NUR ---
ASSESSMENT MADE. SEEN BY ERP. IV PLACED. BLOOD DRAWN. MEDICATED. X RAY DONE.
[2019-05-13 20:20] LABS: MEAN CORPUSCULAR HEMOGLOBIN 32.4 pg (27.5-34.5); MEAN CORPUSCULAR HGB CONC 33.9 g/dL (33.2-36.2); MEAN CORPUSCULAR VOLUME 95.6 fL (81-97); MEAN PLATELET VOLUME 7.7 fL (7.4-10.4); PLATELET COUNT 211 x10^3/uL (130-400); RED BLOOD COUNT 4.68 x10^6/uL (4.38-5.82); RED CELL DISTRIBUTION WIDTH 13.8 % (9.4-14.8)
[2019-05-13 20:31] LABS: ALANINE AMINOTRANSFERASE 30 U/L (12-78); ALBUMIN 3.7 g/dL (3.4-5.0); ANION GAP 10 mmol/L (5-15); CALCIUM 8.9 mg/dL (8.5-10.1); CHLORIDE 93 mmol/L (98-107); CREATININE 1.42 mg/dL (0.7-1.3)
[2019-05-13 20:36] LABS: ALKALINE PHOSPHATASE 67 U/L (45-117); BILIRUBIN,TOTAL 1.1 mg/dL (0.2-1.0); TOTAL PROTEIN 7.7 g/dL (6.4-8.2); TROPONIN I < 0.015 ng/mL (0.000-0.045)
--- NOTE | 2019-05-13 20:50 | NUR ---
PATIENT TO CT SCAN.
--- NOTE | 2019-05-13 21:40 | NUR ---
REPORT TO LEANN LIMA
[2019-05-13] MEDS ORDERED: ACETAMINOPHEN 325 MG TABLET PO PRN (23:30)
[2019-05-13] MEDS ORDERED: MECLIZINE 25 MG TABLET PO PRN (23:30)
[2019-05-13] MEDS ORDERED: ONDANSETRON ODT 4 MG PO PRN (23:30)
[2019-05-13] MEDS: SODIUM CHLORIDE 0.9% 1,000 ML IV SCH (23:30)
[2019-05-14] VITALS (8 sets, daily range): BP systolic 122–174; BP diastolic 70–96
[2019-05-14 01:40] LABS: MD YES
[2019-05-14 01:42] LABS: <PLATELET ESTIMATE> ADEQUATE; <PLT MORPHOLOGY> NORMAL PLT MORPH; <RBC MORPHOLOGY> NORMAL; BASOS#(MANUAL) 0.11 x10^3/uL (0-0.1); BASOS% (MANUAL) 1 % (0-1); EOS#(MANUAL) 0.11 x10^3/uL (0.0-0.4); EOS% (MANUAL) 1 % (1-7); LYMPHS% (MANUAL) 8 % (22-44); MONOS#(MANUAL) 1.23 x10^3/uL (0.3-2.7); MONOS% (MANUAL) 11 % (2-9); SEG#(MANUAL) 8.85 x10^3/uL (1.8-6.8); SEGS% (MANUAL) 79 % (42-75)
[2019-05-14 04:56] LABS: ALBUMIN 3.4 g/dL (3.4-5.0); ANION GAP 6 mmol/L (5-15); CALCIUM 8.4 mg/dL (8.5-10.1); CHLORIDE 96 mmol/L (98-107)
[2019-05-14 04:59] LABS: HEMOGLOBIN A1C 5.4 % (4.2-6.3)
[2019-05-14 05:02] LABS: ALANINE AMINOTRANSFERASE 25 U/L (12-78); ALKALINE PHOSPHATASE 62 U/L (45-117); BILIRUBIN,TOTAL 1.4 mg/dL (0.2-1.0); CREATININE 1.47 mg/dL (0.7-1.3); TOTAL PROTEIN 7.3 g/dL (6.4-8.2); TROPONIN I < 0.015 ng/mL (0.000-0.045)
[2019-05-14] MEDS ORDERED: SERT50TA28 PO (05:33)
[2019-05-14] MEDS ORDERED: LISI40TA PO (05:33)
[2019-05-14] MEDS: HEPARIN 5,000 UNITS/ML, 1ML SQ SCH ×3 (05:36→23:25)
[2019-05-14] MEDS: SODIUM CHLORIDE 0.9% 1,000 ML IV SCH (09:14)
[2019-05-14 09:32] LABS: MICROSCOPIC INDICATED
[2019-05-14 09:34] LABS: SODIUM,URINE RANDOM 51 mmol/L
[2019-05-14 09:48] LABS: OSMOLALITY,URINE 331 mOsm/kg (500-850)
[2019-05-14] MEDS ORDERED: AMLO10TA8 PO (10:02)
[2019-05-14] MEDS: LORATADINE 10 MG TABLET PO SCH (12:20)
[2019-05-14] MEDS: FLUTICASONE NASAL SPRAY 16GM NAS SCH ×2 (12:21→21:00)
[2019-05-14] MEDS ORDERED: PHARMACY MAY ADJ FOR RENAL FX MC PRN (15:30)
[2019-05-14] MEDS ORDERED: hydrALAzine 20 MG/ML, 1ML IV PRN (15:30)
[2019-05-14] MEDS: LISINOPRIL 10 MG TABLET PO SCH (15:35)
[2019-05-14] MEDS ORDERED: AMLODIPINE 5 MG TABLET PO SCH (16:00)
[2019-05-14] MEDS ORDERED: CEFTRIAXONE PMX 1GM/50ML 50 ML IV SCH (16:00)
[2019-05-15 01:26] VITALS: BP 160/99
[2019-05-15 04:49] LABS: BASOPHILS # (AUTO) 0.01 x10^3/uL (0-0.1); BASOPHILS % (AUTO) 0 % (0-1); EOSINOPHILS # (AUTO) 0.01 x10^3/uL (0-0.4); EOSINOPHILS % (AUTO) 0 % (1-7); LYMPHOCYTES # (AUTO) 0.45 x10^3/uL (1-3.4); LYMPHOCYTES % (AUTO) 6 % (22-44); MD NO; MEAN CORPUSCULAR HEMOGLOBIN 32.5 pg (27.5-34.5); MEAN CORPUSCULAR HGB CONC 33.9 g/dL (33.2-36.2); MEAN CORPUSCULAR VOLUME 95.9 fL (81-97); MEAN PLATELET VOLUME 7.9 fL (7.4-10.4); MONOCYTES # (AUTO) 1.32 x10^3/uL (0.2-0.8); MONOCYTES % (AUTO) 17 % (2-9); NEUTROPHILS # (AUTO) 5.85 x10^3/uL (1.8-6.8); NEUTROPHILS % (AUTO) 77 % (42-75); PLATELET COUNT 144 x10^3/uL (130-400); RED BLOOD COUNT 4.31 x10^6/uL (4.38-5.82); RED CELL DISTRIBUTION WIDTH 13.9 % (9.4-14.8)
[2019-05-15 04:52] LABS: ALANINE AMINOTRANSFERASE 24 U/L (12-78); ALBUMIN 3.2 g/dL (3.4-5.0); ANION GAP 7 mmol/L (5-15); CALCIUM 8.8 mg/dL (8.5-10.1); CHLORIDE 100 mmol/L (98-107); CREATININE 1.52 mg/dL (0.7-1.3)
[2019-05-15 04:55] LABS: ALKALINE PHOSPHATASE 55 U/L (45-117); TOTAL PROTEIN 7.6 g/dL (6.4-8.2)
[2019-05-15 07:36] VITALS: BP 160/91
[2019-05-15] MEDS: LISINOPRIL 10 MG TABLET PO SCH (07:44)
[2019-05-15] MEDS: LORATADINE 10 MG TABLET PO SCH (07:44)
[2019-05-15] MEDS: HEPARIN 5,000 UNITS/ML, 1ML SQ SCH (07:44)
[2019-05-15] MEDS: FLUTICASONE NASAL SPRAY 16GM NAS SCH (07:48)
[2019-05-15] MEDS ORDERED: CEFTRIAXONE PMX 1GM/50ML 50 ML IV SCH (08:30)
[2019-05-15] MEDS ORDERED: AMLODIPINE 5 MG TABLET PO SCH (09:00)
[2019-05-15] MEDS ORDERED: CEFD300C37 PO (10:17)
== END 2019-05-15 12:35 | disposition home or self-care (01) | DRG 872 ==
LOC: ED 05-14 00:57 → EDIP 05-14 02:21 → 4WST 05-14 03:13 → DCLOUNGE 05-15 12:26
PROVIDERS: ADMIT Internal Medicine; ATTEND Internal Medicine
DX: A41.9 Sepsis, unspecified organism (principal); E87.1 Hypo-osmolality and hyponatremia; N39.0 Urinary tract infection, site not specified; M06.9 Rheumatoid arthritis, unspecified; K21.9 Gastro-esophageal reflux disease without esophagitis; E11.22 Type 2 diabetes mellitus with diabetic chronic kidney disease; F32.9 Major depressive disorder, single episode, unspecified; F41.1 Generalized anxiety disorder; I12.9 Hypertensive chronic kidney disease with stage 1 through stage 4 chronic kidney disease, or unspecified chronic kidney disease; N18.3 Chronic kidney disease, stage 3 (moderate); Z79.4 Long term (current) use of insulin; Z82.49 Family history of ischemic heart disease and other diseases of the circulatory system; Z85.51 Personal history of malignant neoplasm of bladder; Z90.5 Acquired absence of kidney; I95.9 Hypotension, unspecified; R07.89 Other chest pain
CPT/HCPCS: 36415; 70450; 71045; 80053; 81001; 82962; 83036; 83880; 83930; 83935; 84295; 84300; 84484; 85025; 87040; 87086; 93005; 96374; 99285; G0378; J0696; J1644; J2060; J7030

== ENCOUNTER → 2019-12-21 | Outpatient (CLI) | payer MEDICARE, OTHER ==
[~2019-12-21] MED LIST changes: +AMLO10TA8 PO; -ASCO500T6 PO; +ASCO500T9 PO; +LISI40TA PO; +OMNIPAQUE 350 MG/ML, 100ML BOTTLE ONE; +SERT50TA28 PO
== END | disposition home or self-care (01) ==
LOC: CFH 09:20
PROVIDERS: ATTEND Urology
DX: K76.89 Other specified diseases of liver (principal); Z90.5 Acquired absence of kidney; M47.9 Spondylosis, unspecified; Z85.51 Personal history of malignant neoplasm of bladder; Z90.6 Acquired absence of other parts of urinary tract
CPT/HCPCS: 74178; Q9967